=== PATIENT | female | born 1980 | race Caucasian/White ===

== ENCOUNTER 2017-04-12 10:30 | Day surgery (SDC) | payer OTHER ==
[2017-04-11 09:49] VITALS: BMI 21.2
[~2017-04-12 10:30] MED LIST: LACTATED RINGERS 1,000 ML IV SCH
[2017-04-12 11:47] VITALS: RESP 16; TEMP 98.3
[2017-04-12] MEDS ORDERED: LIDOCAINE 1% 20 ML VIAL (10MG/ML) FOR IV START INTRADERMA ONE (11:51)
[2017-04-12] MEDS ORDERED: PROPOFOL 10 MG/ML 20 ML VIAL IV ONE (12:52)
--- NOTE | 2017-04-12 13:08 | P.PCN ---
Date of Procedure: 04/12/17 Procedure(s) Performed: BRIEF HISTORY: Patient is a 36-year-old pleasant white female, scheduled for an elective colonoscopy as a part of surveillance of long-standing history of ulcerative colitis diagnosed in 2009. She is being maintained on Humira every 2 weeks for the last 2 years and remains in clinical remission. PROCEDURE PERFORMED: Colonoscopy with biopsy. PREOPERATIVE DIAGNOSIS: long-standing history of Crohn's colitis. IV sedation per Anesthesia. PROCEDURE: After informed consent was obtained, the patient, was brought into the endoscopy unit. IV sedation was administered by Anesthesia under continuous monitoring. Digital rectal examination was normal. Initially the Olympus CF- 160 flexible video colonoscope was then inserted in the rectum, gradually advanced into the cecum without any difficulty. Careful examination was performed as the scope was gradually being withdrawn. Ileocecal valve and the appendiceal orifice were visualized and appeared normal. Prep was excellent. Terminal ileum was intubated and there were scattered erosions with superficial ulcerations noted and biopsies were done from this area. Mucosa of the cecum, ascending colon, transverse colon, descending colon, sigmoid colon, and rectum appeared normal. There were scattered pseudopolyps noted in the sigmoid colon, transverse colon and in the ascending colon and multiple random biopsies were done at 10 cm into well to rule out dysplasia. Retroflexion was performed in the rectum and no lesions were seen. The patient tolerated the procedure well. IMPRESSION: Mild active Crohn's ileitis Scattered pseudopolyps involving the ascending colon, transverse colon and sigmoid colon but no active colitis. RECOMMENDATIONS: Findings of this examination were discussed with the patient as well as her family. She will continue with Humira 40 mg every 2 weeks. She will follow with the biopsy results and if the biopsy does not have any evidence of dysplasia she can have a repeat colonoscopy in 2 years.
[2017-04-12 13:27] VITALS: BP 94/55; PULSE 89
== END 2017-04-12 13:56 | disposition home or self-care (01) ==
LOC: ORWHC2ENDO 10:30
PROVIDERS: ATTEND Internal Medicine Gastroenterology
DX: K52.89 Other specified noninfective gastroenteritis and colitis (principal); K63.89 Other specified diseases of intestine; K63.5 Polyp of colon; F17.200 Nicotine dependence, unspecified, uncomplicated; Z79.899 Other long term (current) drug therapy
CPT/HCPCS: 81025; 88305; 45380; J2704

== ENCOUNTER → 2021-08-22 | Outpatient (CLI) | payer OTHER ==
[2021-08-22 20:09] LABS: African American GFR (CKD) 103.6 (60.0-200.0); Albumin 4.4 g/dL (3.8-4.9); Albumin/Globulin Ratio 1.44 (1.60-3.17); Anion Gap 11.1 mmol/L (10.00-18.00); BUN/Creat Ratio 21.43 Ratio (12.00-20.00); Blood Urea Nitrogen 17.7 mg/dL (9.0-27.0); Calcium 9.3 mg/dL (8.7-10.3); Carbon Dioxide 22.3 mmol/L (20.0-27.5); Globulin 3.1 g/dL (1.6-3.3); Non-African American GFR(CKD) 89.4 (60.0-200.0); Total Bilirubin 0.7 mg/dL (0.30-1.20); Total Protein 7.5 g/dL (6.2-8.2)
[2021-08-22 21:07] LABS: Basophils # (A) 0.03 X 10*3/uL (0.00-0.10); Basophils % (A) 0.4 %; Eosinophils # (A) 0.09 X 10*3/uL (0.04-0.35); Eosinophils % (A) 1.2 %; HCT 37.1 % (37.2-46.3); HGB 11.9 g/dL (12.0-15.0); Immature Grans, Automated 0.6 %; Lymphocytes % (A) 33.2 %; MCH 28.1 pg (27.0-32.0); MCHC 32.1 g/dL (32.0-37.0); MCV 87.5 fL (80.0-97.0); Mean Platelet Volume 10.5 fL (9.5-12.2); Monocytes # (A) 0.45 X 10*3/uL (0.20-1.00); Monocytes % (A) 5.8 %; NRBC Per 100 WBC 0 /100 WBCS (0.0-0.0); Neutrophils % (A) 58.8 %; Platelet Count 315 X 10*3/uL (140-440); RBC 4.24 X 10*6/uL (4.10-5.20); RDW 13.6 % (11.5-14.5); WBC 7.82 X 10*3/uL (4.50-10.00)
== END | disposition home or self-care (01) ==
LOC: LABWHC1 13:34
PROVIDERS: ATTEND Nurse Practitioner Family
DX: K50.10 Crohn's disease of large intestine without complications (principal)
CPT/HCPCS: 36415; 80053; 85025

== ENCOUNTER 2021-10-13 05:59 | Day surgery (SDC) | payer OTHER ==
[2021-10-11 15:14] VITALS: BMI 25.0
[~2021-10-13 05:59] MED LIST changes: +LIDOCAINE 1% (10MG/ML) FOR IV START INTRADERMA PRN
[2021-10-13 06:44] VITALS: RESP 16; TEMP 98.3
[2021-10-13] MEDS ORDERED: PROPOFOL 10 MG/ML 20 ML VIAL IV ONE (07:02)
--- NOTE | 2021-10-13 07:20 | P.PCN ---
Date of Procedure: 10/13/21 Procedure(s) Performed: BRIEF HISTORY: Patient is a 41-year-old pleasant white female scheduled for an elective colonoscopy as a part of surveillance of long-standing history of Crohn's colitis diagnosed in 2009. She is presently in clinical remission and is maintained on Humira every 2 weeks. PROCEDURE PERFORMED: Colonoscopy with random biopsies and snare polypectomy. PREOPERATIVE DIAGNOSIS: Long-standing history of Crohn's colitis. IV sedation per Anesthesia. PROCEDURE: After informed consent was obtained, the patient, was brought into the endoscopy unit. IV sedation was administered by Anesthesia under continuous monitoring. Digital rectal examination was normal. Initially the Olympus CF-160 flexible video colonoscope was then inserted in the rectum, gradually advanced into the cecum without any difficulty. Careful examination was performed as the scope was gradually being withdrawn. Ileocecal valve and the appendiceal orifice were visualized and appeared normal. Prep was excellent. Terminal ileum was intubated and 20 cm visualized and were scattered erosions noted in the terminal ileum. Mucosa of the cecum, ascending colon, transverse colon, descending colon, sigmoid colon, and rectum appeared normal. In the distal rectum just proximal to the dentate line there was a 1 cm flat polyp noted which was removed by snare polypectomy. Random biopsies were done from the cecum to rectum at every 10 cm intervals. Scattered pseudopolyps noted in the sigmoid colon. Retroflexion was performed in the rectum and no lesions were seen. The patient tolerated the procedure well. IMPRESSION: 1 cm flat rectal polyp polyp just proximal to the dentate line status post snare polypectomy. Scattered pseudopolyps in the sigmoid colon Rest of the colon appeared normal with no evidence of active colitis Scattered erosions in the terminal ileum RECOMMENDATIONS: Findings of this examination were discussed with the patient as well as her family. She was advised to follow with the biopsy results. If there is no evidence of dysplasia, she can have a repeat colonoscopy every 2 ye ars..
[2021-10-13 07:44] VITALS: BP 97/65; PULSE 80
== END 2021-10-13 08:06 | disposition home or self-care (01) ==
LOC: ORWHC2ENDO 05:59
PROVIDERS: ATTEND Internal Medicine Gastroenterology
DX: D12.8 Benign neoplasm of rectum (principal); K50.90 Crohn's disease, unspecified, without complications; K63.3 Ulcer of intestine; Z98.890 Other specified postprocedural states; Z79.899 Other long term (current) drug therapy
CPT/HCPCS: 81025; 88305; 45380; 45385; J2704